=== PATIENT | male | born 1955 | race Hispanic/Latino ===

== ENCOUNTER 2022-05-31 05:45 | Observation (INO) | payer OTHER ==
[2022-05-26 11:58] LABS: BASOPHILS % (AUTO) 0.5 % (0.0-5.0); HEMATOCRIT 42.9 % (42-54); LYMPHOCYTES % (AUTO) 28.8 % (21.0-51.0); MEAN CORPUSCULAR HEMOGLOBIN 29.1 pg (27.0-33.0); MEAN CORPUSCULAR HGB CONC 33.3 g/dL (32.0-36.0); MEAN CORPUSCULAR VOLUME 87.4 fL (79-99); MONOCYTES % (AUTO) 6.1 % (3.0-13.0); NEUTROPHILS % (AUTO) 63.1 % (40.0-77.0); PLATELET COUNT (AUTO) 235 K/uL (130-400); RED BLOOD CELL COUNT(AUTO) 4.91 MIL/uL (4.50-6.20); RED CELL DISTRIBUTION WIDTH 13.2 % (11.0-15.5); WHITE BLOOD COUNT (AUTO) 8.2 K/uL (4.8-10.8)
[2022-05-26 12:13] LABS: INR 0.97 (0.85-1.15); PROTHROMBIN TIME 10.6 SEC (9.6-11.6)
[2022-05-26 12:14] LABS: ALBUMIN 3.6 g/dL (3.5-5.0); CREATININE 1.3 mg/dL (0.5-1.5); PARTIAL THROMBOPLASTIN TIME 28.2 SEC (26.3-35.5); POTASSIUM 4.2 mmol/L (3.5-5.1); TOTAL PROTEIN, SERUM 7.5 g/dL (6.0-8.3)
[2022-05-26 12:43] LABS: APPEARANCE,URINE CLEAR (CLEAR); BILIRUBIN,URINE NEGATIVE (NEGATIVE); COLOR,URINE COLORLESS (YELLOW); GLUCOSE, URINE (UA) >=1000 mg/dL (NEGATIVE); KETONES,URINE NEGATIVE (NEGATIVE); LEUKOCYTE ESTERASE ,URINE NEGATIVE Leu/uL (NEGATIVE); NITRATE,URINE NEGATIVE (NEGATIVE); OCCULT BLOOD,URINE NEGATIVE (NEGATIVE); PH,URINE 5.5 (5.0-8.0); PROTEIN,URINE NEGATIVE (NEGATIVE); UROBILINOGEN,URINE 0.2 mg/dL (0.2-1.0)
[2022-05-26 12:47] LABS: RBC,URINE 0-1 /HPF (0-1); SQUAMOUS EPITHELIAL CELL,UR RARE /HPF (0-2); WBC,URINE 0-1 /HPF (0-1)
[2022-05-30 10:49] VITALS: BP 142/59
[2022-05-31] VITALS (23 sets, daily range): BP systolic 112–155; BP diastolic 47–134
[~2022-05-31] VITALS: Ht 167.6 cm; Wt 100.2 kg
[2022-05-31] MEDS ORDERED: 0.9%NACL 1000ML 1,000 ML IV ONE (06:36)
[2022-05-31] MEDS ORDERED: TAMS-1 PO (06:52)
[2022-05-31] MEDS ORDERED: ATOR40TA71 PO (06:52)
[2022-05-31] MEDS ORDERED: INSU100V12 SQ (06:52)
[2022-05-31] MEDS ORDERED: SITA1TAB6 PO (06:52)
[2022-05-31] MEDS ORDERED: CANA300T PO (06:52)
[2022-05-31] MEDS ORDERED: INSU100I21 SQ (06:52)
[2022-05-31] MEDS ORDERED: INSU100I3 SQ (06:52)
[2022-05-31] MEDS ORDERED: LOSA100T58 PO (06:52)
[2022-05-31] MEDS ORDERED: SILD100T PO (06:54)
[2022-05-31] MEDS ORDERED: ASPI-1197 PO (06:54)
[2022-05-31] MEDS ORDERED: DEXAMETHASONE SOD PHOSPHATE 10MG/ML 1ML VIAL ONE (07:25)
[2022-05-31] MEDS ORDERED: GLYCOPYRROLATE 1 MG/5 ML SYRINGE ONE (07:25)
[2022-05-31] MEDS ORDERED: SUCCINYLCHOLINE 200MG/10ML SYR ONE (07:25)
[2022-05-31] MEDS ORDERED: ONDANSETRON 4MG INJ ONE ×2 (07:25→10:37)
[2022-05-31] MEDS ORDERED: PROPOFOL 10 MG/ML 20ML VIAL IV ONE (07:26)
[2022-05-31] MEDS ORDERED: ROCURONIUM 10MG/1ML SYR 10 MG/ML ML ONE ×2 (07:26→09:20)
[2022-05-31] MEDS ORDERED: NEOSTIGMINE 5MG/5ML SYR IV ONE (07:26)
[2022-05-31] MEDS ORDERED: FENTANYL CITRATE PF 50 MCG/1 ML 2ML VIAL ONE (07:26)
[2022-05-31] MEDS ORDERED: MIDAZOLAM HCL 1 MG/ML 2ML VIAL ONE (07:32)
[2022-05-31] MEDS ORDERED: LIDOCAINE HCL-MPF 2% 5ML VIAL ONE (07:35)
[2022-05-31] MEDS ORDERED: CEFAZOLIN SODIUM 1 GM VIAL ONE (07:51)
[2022-05-31] MEDS ORDERED: CEFAZOLIN SODIUM 2 GM VIAL IV ONE (08:00)
[2022-05-31] MEDS ORDERED: MORPHINE 4 MG SYG IVP PRN (10:30)
[2022-05-31] MEDS ORDERED: OPIUM/BELLADONNA ALKALOIDS 1 EACH SUPP.RECT RC PRN (10:30)
[2022-05-31] MEDS ORDERED: HYDROCODONE/ACETAMINOPHEN 5/325 MG TAB PO PRN (10:30)
[2022-05-31] MEDS ORDERED: ONDANSETRON 4MG INJ IVP PRN (10:30)
[2022-05-31] MEDS ORDERED: MEPERIDINE-PF 25 MG/ML SYG ONE (10:37)
[2022-05-31] MEDS: 0.9%NACL 1000ML 1,000 ML IV SCH ×2 (12:00→12:40)
[2022-05-31] MEDS: INSULIN LISPRO 100 UNIT/ML 3ML SQ SCH ×2 (12:27→17:00)
[2022-05-31] MEDS: LOSARTAN 100 MG TABLET PO SCH (12:30)
[2022-05-31] MEDS: INSULIN HUMULIN R 100 UNIT/ML 3ML SQ PRN ×2 (12:32→17:39)
[2022-05-31 13:32] LABS: CREATININE 1.1 mg/dL (0.5-1.5); POTASSIUM 4.2 mmol/L (3.5-5.1)
[2022-05-31] MEDS: DOCUSATE SODIUM 100 MG CAP PO SCH (20:39)
[2022-05-31] MEDS ORDERED: INSULIN GLARGINE 100 UNITS/ML 10 ML VIAL SQ SCH (21:00)
[2022-06-01 00:05] VITALS: BP 139/71
[2022-06-01 04:25] LABS: BASOPHILS % (AUTO) 0.3 % (0.0-5.0); EOSINOPHILS % (AUTO) 0.5 % (0.0-8.0); HEMATOCRIT 38.5 % (42-54); LYMPHOCYTES % (AUTO) 15.4 % (21.0-51.0); MEAN CORPUSCULAR HEMOGLOBIN 29.6 pg (27.0-33.0); MEAN CORPUSCULAR HGB CONC 34.3 g/dL (32.0-36.0); MEAN CORPUSCULAR VOLUME 86.3 fL (79-99); MONOCYTES % (AUTO) 8.3 % (3.0-13.0); NEUTROPHILS % (AUTO) 75.1 % (40.0-77.0); PLATELET COUNT (AUTO) 206 K/uL (130-400); RED BLOOD CELL COUNT(AUTO) 4.46 MIL/uL (4.50-6.20); RED CELL DISTRIBUTION WIDTH 13.6 % (11.0-15.5); WHITE BLOOD COUNT (AUTO) 11.3 K/uL (4.8-10.8)
[2022-06-01 04:35] VITALS: BP 115/68
[2022-06-01] MEDS: 0.9%NACL 1000ML 1,000 ML IV SCH ×2 (05:55)
[2022-06-01 07:00] VITALS: BP 113/64
[2022-06-01] MEDS ORDERED: INSULIN GLARGINE 100 UNITS/ML 10 ML VIAL SQ SCH (09:00)
[2022-06-01] MEDS: DOCUSATE SODIUM 100 MG CAP PO SCH (09:21)
[2022-06-01] MEDS: LOSARTAN 100 MG TABLET PO SCH (09:21)
[2022-06-01] MEDS: INSULIN LISPRO 100 UNIT/ML 3ML SQ SCH ×2 (09:56→11:48)
[2022-06-01 11:00] VITALS: BP 114/63
[2022-06-01] MEDS ORDERED: NON-FORMULARY MEDICATION 1 EACH (Sildenafil Citrate (Viagra) 100 MG) PO SCH (13:00)
[2022-06-01] MEDS ORDERED: PHARMACY COMMUNICATION MISC SCH (13:30)
[2022-06-01] MEDS ORDERED: Janumet 50-1,000 mg PO SCH (17:00)
== END 2022-06-01 15:00 | disposition home or self-care (01) ==
LOC: DAH 05:45 → DAHIP 05:46 → 4AH 11:51
PROVIDERS: ADMIT Urology Pediatric Urology; ATTEND Urology Pediatric Urology
DX: N40.1 Benign prostatic hyperplasia with lower urinary tract symptoms (principal); Z20.822 Contact with and (suspected) exposure to COVID-19; R33.9 Retention of urine, unspecified; N35.813 Other membranous urethral stricture, male; N32.0 Bladder-neck obstruction; N13.30 Unspecified hydronephrosis; N13.8 Other obstructive and reflux uropathy; R56.9 Unspecified convulsions; Z53.9 Procedure and treatment not carried out, unspecified reason; Z90.79 Acquired absence of other genital organ(s); Z79.4 Long term (current) use of insulin; Z79.82 Long term (current) use of aspirin
CPT/HCPCS: 80053; 85025 ×2; 85610; 85730; 87088 ×2; 87426; 81001; 36415 ×3; 71045; 93005; 52601; 96372 ×2; 80048; 82948 ×6; A6260; G0378 ×28; A4663; J7030 ×3; A4354; C1758; J0690 ×2; J3010; J0330; J3490 ×2; J1100; J2710; J2250; J2704; J2405 ×2; J2175; J1815; A4358; A4215; A4223; A4222; A4221; A4600